=== PATIENT | female | born 1955 | race Caucasian/White ===

== ENCOUNTER 2016-12-24 19:37 | Emergency (ER) | payer MEDICAID ==
[~2016-12-24] VITALS: Ht 165.1 cm; Wt 82.6 kg
[2016-12-24 20:46] LABS: Basophils # (auto) 0.1 uL; Basophils % (auto) 0.7 % (0.0-2.0); Eosinophils # (auto) 0.3 uL; Eosinophils % (auto) 3.9 % (0.0-7.0); Hematocrit 41.1 % (36.0-46.0); Hemoglobin 13.5 g/dL (12.2-16.2); Lymphocytes # (auto) 3.4 uL; Lymphocytes % (auto) 41.5 % (10.0-50.0); Mean Corpuscular Hemoglobin 28.7 pg (28.0-32.0); Mean Corpuscular Hgb Conc. 32.8 g/dL (32.0-36.0); Mean Corpuscular Volume 87.4 fL (80.0-100.0); Mean Platelet Volume 7.4 fL (6.9-10.8); Monocytes # (auto) 0.8 uL; Monocytes % (auto) 9.6 % (0.0-12.0); Neutrophils # (auto) 3.6 uL; Neutrophils % (auto) 44.3 % (37.0-80.0); Nucleated Red Blood Cells % 0.1 %; Platelet Count (auto) 285 10^3/uL (140-450); Red Cell Distribution Width 14.5 % (11.8-14.3); White Blood Cell 8.2 10^3/uL (4.4-10.8)
[2016-12-24 21:00] LABS: Albumin 3.8 g/dL (3.4-5.0); BUN/Creatinine Ratio 18.5; Bilirubin, Total 0.3 mg/dL (0.2-1.0); Calcium 8.9 mg/dL (8.5-10.1); Potassium 4.3 mmol/L (3.5-5.1); Total Protein 7.6 g/dL (6.4-8.2)
[2016-12-25 05:27] VITALS: BP 108/71
== END 2016-12-25 05:43 | disposition home or self-care (01) ==
LOC: ER 19:42
DX: S86.912A Strain of unspecified muscle(s) and tendon(s) at lower leg level, left leg, initial encounter (principal); Z88.0 Allergy status to penicillin; X58.XXXA Exposure to other specified factors, initial encounter; Y93.89 Activity, other specified; Y92.89 Other specified places as the place of occurrence of the external cause; Y99.8 Other external cause status
CPT/HCPCS: 36415; 80053; 84550; 85025; 85379; 93971

== ENCOUNTER 2020-06-11 19:49 | Emergency (ER) | payer MEDICARE, BC ==
[~2020-06-11] VITALS: Ht 160 cm; Wt 81.6 kg
[2020-06-11 21:00] VITALS: BP 141/76
[2020-06-11] MEDS ORDERED: ACETAMINOPHEN 325 MG TAB PO ONE (23:30)
== END 2020-06-12 01:00 | disposition left against medical advice (07) ==
LOC: ER 19:50
DX: M25.572 Pain in left ankle and joints of left foot (principal); M79.89 Other specified soft tissue disorders; M77.32 Calcaneal spur, left foot
CPT/HCPCS: 73600; 73630; 93971

== ENCOUNTER → 2022-11-23 | Outpatient (CLI) | payer MEDICARE, BC | END | disposition home or self-care (01) | LOC: XYW 14:09 | PROVIDERS: ATTEND Student in an Organized Health Care Education/Training Program | DX: Z01.810 Encounter for preprocedural cardiovascular examination (principal); R07.89 Other chest pain | CPT/HCPCS: 93306 ==

== ENCOUNTER → 2023-01-05 | Outpatient (CLI) | payer MEDICARE, BC ==
[2023-01-05 11:36] LABS: Basophils # (auto) 0.1 10 ^3/uL (0-0.2); Basophils % (auto) 0.7 % (0.0-2.0); Eosinophils # (auto) 0.3 10 ^3/uL (0-0.8); Eosinophils % (auto) 3.6 % (0.0-7.0); Hematocrit 42.9 % (36.0-46.0); Hemoglobin 14.1 g/dL (12.2-16.2); Lymphocytes # (auto) 2.7 10 ^3/uL (0.4-5.4); Lymphocytes % (auto) 36.5 % (10.0-50.0); Mean Corpuscular Hemoglobin 28.2 pg (28.0-32.0); Mean Corpuscular Volume 85.5 fL (80.0-100.0); Monocytes # (auto) 0.7 10 ^3/uL (0-1.3); Monocytes % (auto) 9.7 % (0.0-12.0); Neutrophils # (auto) 3.7 10 ^3/uL (1.6-8.6); Neutrophils % (auto) 49.5 % (37.0-80.0); Nucleated Red Blood Cells % 0.2 %; Red Blood Cells 5.01 10^6/uL (4.0-5.20); Red Cell Distribution Width 14.2 % (11.8-14.3); White Blood Cell 7.5 10^3/uL (4.4-10.8)
[2023-01-05 11:39] LABS: Alanine Aminotransferase 29 U/L (7-40); Albumin 4.2 g/dL (3.2-4.8); Alkaline Phosphatase 82 U/L (46-116); Anion Gap 5 (5-15); Aspartate Aminotransferase 24 U/L (13-40); BUN/Creatinine Ratio 18.8 (10.0-20.0); Blood Urea Nitrogen 15 mg/dL (9-23); Calcium 9.2 mg/dL (8.5-10.1); Carbon Dioxide 32 mmol/L (20-30); Chloride 105 mmol/L (98-107); Cholesterol 187 mg/dL (< 200); Glucose 90 mg/dL (74-106); LDL Cholesterol 122 mg/dL (< 100); Potassium 3.9 mmol/L (3.5-5.1); Sodium 142 mmol/L (136-145); Triglycerides 101 mg/dL (< 150)
[2023-01-05 11:40] LABS: Bilirubin, Total 0.4 mg/dL (0.2-1.0); HDL Cholesterol 51 mg/dL (40-59); Total Protein 7.1 g/dL (5.7-8.2)
[2023-01-05 12:27] LABS: Free T4 (Free Thyroxine) 0.9 ng/dL (0.89-1.76)
== END | disposition home or self-care (01) ==
LOC: LAB 10:27
PROVIDERS: ATTEND Internal Medicine
DX: R07.89 Other chest pain (principal); R42 Dizziness and giddiness; E03.9 Hypothyroidism, unspecified; E78.5 Hyperlipidemia, unspecified
CPT/HCPCS: 36415; 80053; 80061; 84439; 84443; 84481; 85025

== ENCOUNTER 2023-04-20 11:32 | Inpatient (IN) | payer MEDICARE, BC ==
[2023-04-15 12:16] LABS: Basophils # (auto) 0 10 ^3/uL (0-0.2); Basophils % (auto) 0.7 % (0.0-2.0); Eosinophils # (auto) 0.1 10 ^3/uL (0-0.8); Eosinophils % (auto) 2.1 % (0.0-7.0); Hematocrit 43.2 % (36.0-46.0); Hemoglobin 14.4 g/dL (12.2-16.2); Lymphocytes # (auto) 2.5 10 ^3/uL (0.4-5.4); Lymphocytes % (auto) 34.1 % (10.0-50.0); Mean Corpuscular Hemoglobin 28.9 pg (28.0-32.0); Mean Corpuscular Hgb Conc. 33.4 g/dL (32.0-36.0); Mean Corpuscular Volume 86.5 fL (80.0-100.0); Monocytes # (auto) 0.7 10 ^3/uL (0-1.3); Monocytes % (auto) 9.3 % (0.0-12.0); Neutrophils # (auto) 3.9 10 ^3/uL (1.6-8.6); Neutrophils % (auto) 53.8 % (37.0-80.0); Red Cell Distribution Width 13.9 % (11.8-14.3); White Blood Cell 7.2 10^3/uL (4.4-10.8)
[2023-04-15 12:25] LABS: Urine Bacteria NONE SEEN /hpf (None Seen); Urine Blood Negative /uL (Negative); Urine Clarity Clear (Clear); Urine Color Yellow (Yellow); Urine Protein, UAD Negative (Negative); Urine Urobilinogen Normal (Negative); Urine WBC 1 /hpf (0 - 5); Urine pH 6.5 (5.0-8.0)
[2023-04-15 12:33] LABS: INR 0.96 (0.9-1.15); Partial Thromboplastin Time 30.1 SEC (24.5-34.5); Prothrombin Time 10.1 sec (9.3-11.8)
[2023-04-15 12:37] LABS: Alanine Aminotransferase 22 U/L (7-40); Albumin 4.2 g/dL (3.2-4.8); Alkaline Phosphatase 78 U/L (46-116); Anion Gap 5 (5-15); Aspartate Aminotransferase 25 U/L (13-40); Blood Urea Nitrogen 16 mg/dL (9-23); Calcium 9.8 mg/dL (8.5-10.1); Carbon Dioxide 31 mmol/L (20-30); Chloride 106 mmol/L (98-107); Glucose 89 mg/dL (74-106); Potassium 4.3 mmol/L (3.5-5.1); Sodium 142 mmol/L (136-145)
[2023-04-15 12:38] LABS: Bilirubin, Total 0.5 mg/dL (0.2-1.0)
[~2023-04-20] VITALS: Ht 165.1 cm; Wt 82.8 kg
[2023-04-20] VITALS (7 sets, daily range): BP systolic 113–135; BP diastolic 61–71; PULSE 63–97; RESP 15–24; TEMP 97.5–97.6; O2SAT 92–97
[~2023-04-20 11:32] MED LIST: DONE10TA9 PO; ESCI10TA PO; TRAZ-228 PO; ZIPR40CA8 PO
[2023-04-20] MEDS ORDERED: GLYCOPYRROLATE 0.2 MG/ML 1ML VIAL ONE (12:51)
[2023-04-20] MEDS ORDERED: ONDANSETRON HCL 4 MG/2 ML VIAL ONE (12:51)
[2023-04-20] MEDS ORDERED: KETOROLAC TROMETH 30 MG/ML 1ML VIAL ONE (12:51)
[2023-04-20] MEDS ORDERED: SUGAMMADEX 200mg/2ml Vial (100MG/ML) IV ONE ×2 (12:51→16:34)
[2023-04-20] MEDS ORDERED: PROPOFOL 10 MG/ML 20 ML IV ONE (12:51)
[2023-04-20] MEDS ORDERED: DexAMETHasone SOD PHOS 10MG/1ML VIAL INJ ONE (12:51)
[2023-04-20] MEDS ORDERED: fentaNYL CITRATE 100 MCG/2 ML VL ONE (12:51)
[2023-04-20] MEDS ORDERED: ROCURONIUM 10MG/ML 10ML VIAL IV ONE (12:51)
[2023-04-20] MEDS ORDERED: LIDOCAINE 2% (LOCAL ANESTH.) PF 5ml SDV ONE (12:51)
[2023-04-20] MEDS ORDERED: KETAMINE 50mg/ML 1ml syringe ONE (12:51)
[2023-04-20] MEDS: GABAPENTIN 400 MG CAP PO ONE (14:35)
[2023-04-20] MEDS: CELECOXIB 100 MG CAP PO ONE (14:35)
[2023-04-20] MEDS ORDERED: MIDAZOLAM HCL 2MG/2ML 2ml VIAL (1mg/ml) ONE (15:11)
[2023-04-20] MEDS: ACETAMINOPHEN IV 1000 MG/100ML (10MG/ML) IV ONE (15:15)
[2023-04-20] MEDS ORDERED: HYDROmorphone HCL 2 MG/ML VL/or syr ONE (16:04)
[2023-04-20] MEDS ORDERED: ONDANSETRON HCL 4 MG/2 ML VIAL IV PRN ×2 (16:15→17:00)
[2023-04-20] MEDS ORDERED: HYDROmorphone HCL 2 MG/ML VL/or syr IV PRN ×2 (16:15→17:00)
[2023-04-20] MEDS ORDERED: NALOXONE HCL 0.4 MG/ML VIAL ONE (16:27)
[2023-04-20] MEDS ORDERED: ALBUTEROL SULF 2.5 MG/0.5ML(0.5%) NEB SOLN NEB PRN (18:15)
[2023-04-20] MEDS: DONEPEZIL HYDROCHLORIDE 5 MG TAB PO SCH (21:00)
[2023-04-20] MEDS: DOCUSATE SOD 100 MG CAP PO PRN (21:00)
[2023-04-20] MEDS: ZIPRASIDONE HYDROCHLORIDE 40 MG PO SCH (22:00)
[2023-04-21] VITALS (8 sets, daily range): BP systolic 96–126; BP diastolic 16–51; PULSE 59–75; RESP 17–19; TEMP 98.1–98.9; O2SAT 89–97
[2023-04-21] MEDS: HYDROmorphone HCL 2 MG/ML VL/or syr IV PRN (03:25)
[2023-04-21] MEDS: ONDANSETRON HCL 4 MG/2 ML VIAL IV PRN (03:30)
[2023-04-21] MEDS: SODIUM CHLOR 0.9% PF (SALINE LOCK) 10ML VIAL/SYR IV SCH (03:57)
[2023-04-21] MEDS: D5W/SOD CHL 0.45%/KCL 20MEQ 1,000 ML IV ONE (07:18)
[2023-04-21] MEDS: levoFLOXacin 500MG 100 ML IV SCH (09:35)
[2023-04-21] MEDS: PANTOPRAZOLE 40 MG/10 ML VIAL INJ IV SCH (09:36)
[2023-04-21] MEDS: CITALOPRAM HYDROBR 20 MG TAB PO SCH (09:36)
[2023-04-21 09:48] LABS: Basophils # (auto) 0 10 ^3/uL (0-0.2); Eosinophils # (auto) 0 10 ^3/uL (0-0.8); Hematocrit 39.7 % (36.0-46.0); Hemoglobin 12.9 g/dL (12.2-16.2); Lymphocytes # (auto) 1.9 10 ^3/uL (0.4-5.4); Lymphocytes % (auto) 14.3 % (10.0-50.0); Mean Corpuscular Hemoglobin 28.1 pg (28.0-32.0); Mean Corpuscular Hgb Conc. 32.6 g/dL (32.0-36.0); Mean Corpuscular Volume 86.3 fL (80.0-100.0); Monocytes % (auto) 7.9 % (0.0-12.0); Neutrophils # (auto) 10.2 10 ^3/uL (1.6-8.6); Neutrophils % (auto) 77.8 % (37.0-80.0); Nucleated Red Blood Cells % 0.1 %; Red Cell Distribution Width 14.1 % (11.8-14.3); White Blood Cell 13.1 10^3/uL (4.4-10.8)
[2023-04-21 09:56] LABS: Alanine Aminotransferase 16 U/L (7-40); Albumin 3.7 g/dL (3.2-4.8); Alkaline Phosphatase 61 U/L (46-116); Anion Gap 6 (5-15); Aspartate Aminotransferase 21 U/L (13-40); BUN/Creatinine Ratio 21.2 (10.0-20.0); Blood Urea Nitrogen 14 mg/dL (9-23); Calcium 9.4 mg/dL (8.5-10.1); Carbon Dioxide 27 mmol/L (20-30); Chloride 105 mmol/L (98-107); Glucose 89 mg/dL (74-106); LDL Cholesterol 110 mg/dL (< 100); Potassium 4.7 mmol/L (3.5-5.1); Sodium 138 mmol/L (136-145); Triglycerides 132 mg/dL (< 150)
[2023-04-21 09:57] LABS: Bilirubin, Total 0.6 mg/dL (0.2-1.0); Cholesterol 179 mg/dL (< 200); HDL Cholesterol 46 mg/dL (40-59); Total Protein 6.3 g/dL (5.7-8.2)
[2023-04-21 10:05] LABS: CRP High Sensitivity 1.28 mg/dL (<1.0)
[2023-04-21 10:21] LABS: INR 1.04 (0.9-1.15); Partial Thromboplastin Time 29.6 SEC (24.5-34.5); Prothrombin Time 10.9 sec (9.3-11.8)
[2023-04-21 10:40] LABS: Lipase 31 U/L (12-53); Magnesium 1.8 mg/dL (1.6-2.6)
[2023-04-21 11:20] LABS: Amphetamine Screen, Urine Neg (NEGATIVE)
[2023-04-21 11:22] LABS: Barbiturate Scree,Urine Neg (NEGATIVE); Urine Bacteria NONE SEEN /hpf (None Seen); Urine Blood Negative /uL (Negative); Urine Clarity Clear (Clear); Urine Color Yellow (Yellow); Urine Mucus FEW (None Seen); Urine Protein, UAD Negative (Negative); Urine Specific Gravity 1.023 (1.001-1.035); Urine Urobilinogen Normal (Negative); Urine WBC 3 /hpf (0 - 5)
[2023-04-21 11:23] LABS: Benzodiazephine Screen, Urine Pos (NEGATIVE); Cannabinoid Screen, Urine Neg (NEGATIVE); Cocaine Screen, Urine Neg (NEGATIVE); Opiate Scree,Urine Neg (NEGATIVE); Phencyclidine Screen, Urine Neg (NEGATIVE)
[2023-04-21] MEDS: HYDROcodone-ACET 5/325MG TAB PO PRN (11:59)
[2023-04-21] MEDS: LIDOCAINE W/ EPINEPHRINE 2% INJ 20ML VIAL ONE (18:35)
[2023-04-21] MEDS: BUPIVACAINE HCL 0.25% P/F 10 ML VIAL ONE (18:35)
[2023-04-21] MEDS: LIDOCAINE 2% JELLY 11ml (GLYDO) ONE (18:35)
[2023-04-21] MEDS: levoFLOXacin 500MG 100 ML IV ONE (18:36)
[2023-04-21] MEDS: FAMOTIDINE (10MG/ML) 2ML VL IV ONE (18:36)
[2023-04-21] MEDS: ZIPRASIDONE HYDROCHLORIDE 40 MG PO SCH (20:59)
[2023-04-22 05:07] VITALS: BP 107/61; PULSE 72; RESP 18; TEMP 98.7; O2SAT 90
[2023-04-22 07:02] LABS: Alanine Aminotransferase 16 U/L (7-40); Albumin 3.7 g/dL (3.2-4.8); Alkaline Phosphatase 58 U/L (46-116); Anion Gap 5 (5-15); Aspartate Aminotransferase 19 U/L (13-40); BUN/Creatinine Ratio 16.4 (10.0-20.0); Blood Urea Nitrogen 11 mg/dL (9-23); Calcium 8.6 mg/dL (8.7-10.4); Carbon Dioxide 30 mmol/L (20-30); Chloride 105 mmol/L (98-107); Glucose 82 mg/dL (74-106); Sodium 140 mmol/L (136-145)
[2023-04-22 07:03] LABS: Bilirubin, Total 0.6 mg/dL (0.2-1.0); Total Protein 6.2 g/dL (5.7-8.2)
[2023-04-22 07:14] LABS: Basophils # (auto) 0 10 ^3/uL (0-0.2); Basophils % (auto) 0.2 % (0.0-2.0); Eosinophils # (auto) 0 10 ^3/uL (0-0.8); Eosinophils % (auto) 0.2 % (0.0-7.0); Hematocrit 39.1 % (36.0-46.0); Hemoglobin 12.7 g/dL (12.2-16.2); Lymphocytes # (auto) 2.3 10 ^3/uL (0.4-5.4); Lymphocytes % (auto) 20.8 % (10.0-50.0); Mean Corpuscular Hemoglobin 28.1 pg (28.0-32.0); Mean Corpuscular Hgb Conc. 32.5 g/dL (32.0-36.0); Mean Corpuscular Volume 86.5 fL (80.0-100.0); Monocytes % (auto) 9.2 % (0.0-12.0); Neutrophils # (auto) 7.7 10 ^3/uL (1.6-8.6); Neutrophils % (auto) 69.6 % (37.0-80.0); Red Blood Cells 4.52 10^6/uL (4.0-5.20); Red Cell Distribution Width 14.3 % (11.8-14.3)
[2023-04-22 07:30] VITALS: O2SAT 97
[2023-04-22 07:35] VITALS: O2SAT 91
[2023-04-22] MEDS: ACETAMINOPHEN 325 MG TAB PO PRN (08:17)
[2023-04-22 09:00] VITALS: BP 117/68; PULSE 62; RESP 18; TEMP 99.1; O2SAT 90
[2023-04-22] MEDS ORDERED: IPRATROPIUM BROM 0.5 MG/2.5ML INH SOL NEB SCH (12:00)
[2023-04-22 12:18] VITALS: TEMP 37.3
[2023-04-22 12:50] VITALS: BP 107/64; PULSE 68; RESP 20; TEMP 98.7; O2SAT 92
== END 2023-04-22 13:15 | disposition home health service (06) | DRG 353 ==
LOC: SUR 11:32 → OVERFLOW 18:10 → EAST 18:53
PROVIDERS: ADMIT Internal Medicine; ATTEND Surgery
PROC: 0WQF0ZZ Repair Abdominal Wall, Open Approach (ICD-10-PCS; principal; 2023-04-20 15:35)
DX: K43.2 Incisional hernia without obstruction or gangrene (principal); J96.01 Acute respiratory failure with hypoxia; F32.A Depression, unspecified; E03.9 Hypothyroidism, unspecified; Z86.711 Personal history of pulmonary embolism; Z88.0 Allergy status to penicillin; Z79.899 Other long term (current) drug therapy
CPT/HCPCS: 36415; 71045; 80053; 80061; 80307; 81001; 82140; 82306; 82607; 83036; 83690; 83735; 84443; 85025; 85610; 85730; 86141; 86850; 86900; 86901; 97110; 97116; 97163; C1781; C9113; G0378; J0131; J1100; J1885; J1956; J2001; J2250; J2405; J2704; J3490

== ENCOUNTER 2023-11-24 14:07 | Emergency (ER) | payer MEDICARE, BC ==
[~2023-11-24] VITALS: Ht 165.1 cm; Wt 72.7 kg
[2023-11-24 15:17] VITALS: BP 130/75; PULSE 83; RESP 18; TEMP 98; O2SAT 95
[2023-11-24] MEDS ORDERED: LEVO500T91 PO (15:33)
[2023-11-24] MEDS ORDERED: METH4PAK PO (15:33)
[2023-11-24] MEDS ORDERED: BENZ200C64 PO (15:33)
== END 2023-11-24 15:46 | disposition home or self-care (01) ==
LOC: ER 14:07
DX: J20.9 Acute bronchitis, unspecified (principal); J01.00 Acute maxillary sinusitis, unspecified
CPT/HCPCS: 71046

== ENCOUNTER → 2024-01-27 | Day surgery (SDC) | payer MEDICARE, BC ==
[2024-01-23 12:50] LABS: Urine Bacteria None Seen /hpf (None Seen)
[2024-01-23 13:25] LABS: Urine Amorphous Crystal MANY /hpf (None Seen); Urine Blood Negative /uL (Negative); Urine Clarity Cloudy (Clear); Urine Protein, UAD Negative (Negative); Urine Specific Gravity 1.017 (1.001-1.035); Urine Urobilinogen Normal (Negative); Urine WBC 1 /hpf (0 - 5); Urine pH 7.5 (5.0-9.0)
[2024-01-23 13:26] LABS: Basophils # (auto) 0.1 10 ^3/uL (0-0.2); Basophils % (auto) 0.8 % (0.0-2.0); Eosinophils # (auto) 0.2 10 ^3/uL (0-0.8); Eosinophils % (auto) 2.5 % (0.0-7.0); Hematocrit 41.2 % (36.0-46.0); Lymphocytes # (auto) 2.3 10 ^3/uL (0.4-5.4); Lymphocytes % (auto) 31.6 % (10.0-50.0); Mean Corpuscular Hemoglobin 29.9 pg (28.0-32.0); Mean Corpuscular Volume 88.1 fL (80.0-100.0); Monocytes # (auto) 0.6 10 ^3/uL (0-1.3); Neutrophils # (auto) 4.2 10 ^3/uL (1.6-8.6); Neutrophils % (auto) 57.1 % (37.0-80.0); Platelet Count (auto) 211 10^3/uL (140-450); Red Blood Cells 4.68 10^6/uL (4.0-5.20); Red Cell Distribution Width 14.2 % (11.8-14.3); Urine Color Yellow (Yellow); White Blood Cell 7.3 10^3/uL (4.4-10.8)
[2024-01-23 13:39] LABS: INR 0.95 (0.9-1.15); Partial Thromboplastin Time 27.6 SEC (24.5-34.5); Prothrombin Time 10.1 sec (9.3-11.8)
[2024-01-23 14:22] LABS: Alanine Aminotransferase 17 U/L (7-40); Albumin 3.9 g/dL (3.2-4.8); Alkaline Phosphatase 83 U/L (46-116); Anion Gap 2 (5-15); Aspartate Aminotransferase 16 U/L (13-40); BUN/Creatinine Ratio 25.4 (10.0-20.0); Blood Urea Nitrogen 18 mg/dL (9-23); Calcium 9.6 mg/dL (8.7-10.4); Carbon Dioxide 34 mmol/L (20-31); Chloride 107 mmol/L (98-107); Glucose 90 mg/dL (74-106); Potassium 4.2 mmol/L (3.5-5.1); Sodium 143 mmol/L (136-145)
[2024-01-23 14:23] LABS: Bilirubin, Total 0.3 mg/dL (0.2-1.0); Total Protein 6.6 g/dL (5.7-8.2)
[~2024-01-27] VITALS: Ht 165.1 cm; Wt 74.8 kg
[~2024-01-27] MED LIST changes: +BENZ200C64 PO; +DexAMETHasone SOD PHOS 10MG/1ML VIAL INJ ONE; +LEVO500T91 PO; +MEPERIDINE HCL (25 MG/ML) 1ML VIAL ONE; +METH4PAK PO; +MIDAZOLAM HCL 2MG/2ML 2ml VIAL (1mg/ml) ONE; +fentaNYL CITRATE 100 MCG/2 ML VL ONE
[2024-01-27 14:38] VITALS: PULSE 46; RESP 10; TEMP 98.4; O2SAT 96
[2024-01-27 15:55] VITALS: BP 112/71; PULSE 61; RESP 12; O2SAT 95
--- NOTE | 2024-01-27 16:40 | DVHOP2 ---
Operative Report DATE OF OPERATION: 01/27/24 PROCEDURE: Colonoscopy with cold snare polypectomy. PREOPERATIVE INDICATION: The patient is a 68 -year-old female undergoing colonoscopy for colon cancer screening with change in bowel habits and personal history of colon polyps POSTOPERATIVE DIAGNOSES: 1. Moderate diverticular disease most prominent in the sigmoid 2. 3 mm benign-appearing transverse colon polyp was seen and removed by cold snare polypectomy and the specimens were retrieved 3. There were a 4 mm benign-appearing sigmoid polyp that were seen and removed by cold snare polypectomy 4. There were two or three small benign-appearing rectal polyps that appeared hyperplastic and were removed by cold biopsy forceps 5. Trace to 1+ internal hemorrhoids otherwise normal examination up to the cecum PROCEDURE PERFORMED BY: Braulio Walter M.D. SCOPE: Olympus videocolonoscope. ASA CLASS: 2. PREOPERATIVE MEDICATIONS: Dr. Frank Rossi PROCEDURE IN DETAIL: After obtaining an informed consent, the patient was placed on left lateral decubitus position. She was then sedated with the above medications. A rectal examination was performed that was normal. The colonoscope was then passed through the anus into the rectosigmoid and through the descending, transverse, and ascending colon up to the cecum with visualization of the appendiceal orifice, base of the cecum and the ileocecal valve. The colonoscope was then withdrawn. No masses or colitis was noted. Patient had moderate scattered diverticular disease most prominent in the si gmoid with sigmoid muscular hypertrophy There was a 3 mm benign-appearing transverse colon polyp that was seen and removed by cold snare polypectomy There was another 3-4 mm benign-appearing sigmoid polyp that was seen and removed by cold snare polypectomy There were 2-3 benign-appearing rectal polyps were seen and removed by cold biopsy forceps. On retroflexion and straight on view the patient had trace to 1+ internal hemorrhoids. The patient tolerated the procedure well without difficulty. WITHDRAWAL TIME: 9 minutes QUALITY OF THE PREP: [place] Bowel Prep score: 9. COMPLICATIONS : None SPECIMENS: Transverse colon polyp Sigmoid polyp Rectal polyps DISPOSITION: Stable D/C to home PLAN: 1. Repeat colonoscopy base on biopsy result likely in five years 2. Resume GI soft diet advance as tolerated 3. Increase fluid and fiber intake 4. Local anorectal hemorrhoidal care 5. Outpatient follow up with me in 4-6 weeks to review results and discuss further management BRAULIO WALTER MD Jan 27, 2024 16:40
== END | disposition home or self-care (01) ==
LOC: GI 11:13
PROVIDERS: ATTEND Internal Medicine Gastroenterology
DX: R19.5 Other fecal abnormalities (principal); R15.9 Full incontinence of feces; D12.5 Benign neoplasm of sigmoid colon; K57.30 Diverticulosis of large intestine without perforation or abscess without bleeding; K64.8 Other hemorrhoids; I10 Essential (primary) hypertension; E03.9 Hypothyroidism, unspecified; F31.9 Bipolar disorder, unspecified; J45.909 Unspecified asthma, uncomplicated; Z90.710 Acquired absence of both cervix and uterus; Z90.89 Acquired absence of other organs; Z88.0 Allergy status to penicillin; Z79.82 Long term (current) use of aspirin; Z79.899 Other long term (current) drug therapy
CPT/HCPCS: 36415; 45380; 45385; 80053; 81001; 85025; 85610; 85730; 88305; J1100; J2175; J2250; J3010; J7030

== ENCOUNTER → 2024-05-14 | Outpatient (CLI) | payer MEDICARE, BC ==
[~2024-05-14] MED LIST changes: -DexAMETHasone SOD PHOS 10MG/1ML VIAL INJ ONE; -MEPERIDINE HCL (25 MG/ML) 1ML VIAL ONE; -MIDAZOLAM HCL 2MG/2ML 2ml VIAL (1mg/ml) ONE; -fentaNYL CITRATE 100 MCG/2 ML VL ONE
[2024-05-14 16:36] LABS: Urine Amorphous Crystal FEW /hpf (None Seen); Urine Bacteria FEW /hpf (None Seen); Urine Blood Negative /uL (Negative); Urine Budding Yeast MANY /hpf (None Seen); Urine Clarity Turbid (Clear); Urine Color Light-Yellow (Yellow); Urine Mucus FEW (None Seen); Urine Protein, UAD Negative (Negative); Urine Specific Gravity 1.018 (1.001-1.035); Urine Squamous Epithelial Cell None Seen /hpf (<5); Urine Urobilinogen Normal (Negative)
== END | disposition home or self-care (01) ==
LOC: LAB 15:25
PROVIDERS: ATTEND Urology
DX: R32 Unspecified urinary incontinence (principal)
CPT/HCPCS: 81001; 87086

== ENCOUNTER → 2024-09-19 | Outpatient (CLI) | payer MEDICARE, BC ==
[2024-09-19 15:50] LABS: Hematocrit 44.5 % (36.0-46.0); Hemoglobin 14.8 g/dL (12.2-16.2); Mean Corpuscular Hemoglobin 28.7 pg (28.0-32.0); Mean Corpuscular Volume 86.4 fL (80.0-100.0); Nucleated Red Blood Cells % 0.0 %
[2024-09-19 16:06] LABS: Urine Protein, UAD TRACE (Negative)
[2024-09-19 16:11] LABS: Alanine Aminotransferase 18 U/L (7-40); Albumin 4.2 g/dL (3.2-4.8); Alkaline Phosphatase 89 U/L (46-116); Anion Gap 7 (5-15); BUN/Creatinine Ratio 19.5 (10.0-20.0); Blood Urea Nitrogen 16 mg/dL (9-23); Calcium 9.7 mg/dL (8.7-10.4); Carbon Dioxide 31 mmol/L (20-31); Chloride 106 mmol/L (98-107); Cholesterol 178 mg/dL (< 200); Glucose 84 mg/dL (74-106); HDL Cholesterol 43 mg/dL (40-59); Potassium 4.4 mmol/L (3.5-5.1); Sodium 144 mmol/L (136-145); Total Protein 6.9 g/dL (5.7-8.2)
[2024-09-19 16:12] LABS: Bilirubin, Total 0.5 mg/dL (0.2-1.0)
[2024-09-19 16:16] LABS: Triglycerides 206 mg/dL (< 150)
== END | disposition home or self-care (01) ==
LOC: LAB 15:25
PROVIDERS: ATTEND Internal Medicine
DX: N18.2 Chronic kidney disease, stage 2 (mild) (principal); R73.01 Impaired fasting glucose; R32 Unspecified urinary incontinence; Z13.1 Encounter for screening for diabetes mellitus; Z00.01 Encounter for general adult medical examination with abnormal findings; Z79.899 Other long term (current) drug therapy
CPT/HCPCS: 36415; 80053; 80061; 81001; 83036; 84439; 84443; 85025

== ENCOUNTER 2024-11-23 15:33 | Emergency (ER) | payer MEDICARE, BC ==
[~2024-11-23] VITALS: Ht 165.1 cm; Wt 77.2 kg
--- NOTE | 2024-11-23 16:44 | ED.PDOC ---
Musculoskeletal HPI Comments A 69 YEAR OLD FEMALE PRESENTS TO THE ED WITH COMPLAINT OF RIGHT SIDED HIP PAIN RADIATING TO HER RIGHT LEG THAT STARTED 3 WEEKS AGO. PATIENT REPORTS SHE WENT TO SEE HER PCP ON 11/14/24 FOR COMPLAINT, HAD OUTPATIENT X RAYS DONE BUT NEVER RECEIVED HER RESULTS. PATIENT DENIES ANY RECENT FALLS, INJURIES OR PRIOR SURGERY. PATIENT HAS BEEN USING ADVIL BUT HAS NO PAIN RELIEF. PATIENT DENIES FEVER, CHILLS, SHORTNESS OF BREATH, CHEST PAIN, ABDOMINAL PAIN, NAUSEA, VOMITING, HEADACHE, OR OTHER COMPLAINTS. NO OTHER SYMPTOMS OR MODIFYING FACTORS AT THIS TIME. PATIENT IS ALERT, ORIENTED X 4, AND HAS STEADY GAIT. Chief Complaint: Lower Extremity Time Seen by MD: 16:15 Primary Care Provider: GENNARO Reviewed Notes: Nurses Notes, Medications, Allergies Allergies: Coded Allergies: Penicillins (Verified Allergy, Unknown, 01/23/24) Uncoded Allergies: PENICILLIN (Allergy, Unknown, 12/24/16) Home Meds Active Scripts Tramadol HCl (Tramadol HCl) 50 Mg Tab, 50 MG PO BID, #20 TAB Prov:LOLA GOODRICH 11/23/24 Benzonatate (Benzonatate) 200 Mg Cap, 1 CAP PO TID, #30 CAP Prov:LOLA GOODRICH 11/24/23 Methylprednisolone (Medrol Dosepak) 4 Mg Blaine, 4 MG PO UD, #21 TAB UAD Prov:LOLA GOODRICH 11/24/23 Levofloxacin Hemihydrate (LEVAQUIN 500 MG) 500 Mg Tab, 1 TAB PO DAILY, #10 TAB Prov:LOLA GOODRICH 11/24/23 Reported Medications Donepezil Hydrochloride (Aricept) 10 Mg Tab, 10 MG PO HS, TAB 04/15/23 Escitalopram Oxalate (Lexapro) 10 Mg Tab, 10 MG PO DAILY, TAB 04/15/23 Ziprasidone Hydrochloride (Geodon) 40 Mg Cap, 40 MG PO BID, CAP 04/15/23 Trazodone Hcl (Trazodone Hcl) 100 Mg Tab, 2 TAB PO HS, TAB 04/15/23 Information Source: Patient Mode of Arrival: Ambulatory Location: Right Extremity Location: Back, Hip, Leg Timing: Weeks (3) Severity: Moderate Able to Move Extremity: Yes Bear Weight: Fully Pain: Moderate Mechanism: None Circumstances: Spontaneous Onset of Symptoms: Spontaneous Symptoms: Pain DVT Risk Factors: NONE Associated signs and symptoms: Back pain, Leg pain Past Medical History PAST MEDICAL HISTORY: Depression, PE, Thyroid Surgical History: Denies all surgeries [employer]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 Family History Family History: No family hx of DM, No family hx of Heart isabela, No family hx of HTN Social History Smoker: Non-Smoker Alcohol: Denies ETOH Use Drugs: Denies Drug Use Lives In: Home Constitutional: denies: chills, diaphoresis, fatigue, fever, malaise, sweats, weakness, others EENTM: denies: blurred vision, double vision, ear bleeding, ear discharge, ear drainage, ear pain, ear ringing, eye pain, eye redness, hearing loss, mouth pain, mouth swelling, nasal discharge, nose bleeding, nose congestion, nose pain, photophobia, tearing, throat pain, throat swelling, voice changes, others Respiratory: denies: cough, hemoptysis, orthopnea, SOB at rest, shortness of breath, SOB with excertion, stridor, wheezing, others Cardiovascular: denies: chest pain, dizzy spells, diaphoresis, Dyspnea on exertion, edema, irregular heart beat, left arm pain, lightheadedness, palpitations, PND, syncope, others Gastrointestinal: denies: abdomen distended, abdominal pain, blood streaked bowels, constipated, diarrhea, dysphagia, difficulty swallowing, hematemesis, melena, nausea, poor appetite, poor fluid intake, rectal bleeding, rectal pain, vomiting, others Genitourinary: denies: abnormal vagina bleeding, burning, dyspareunia, dysuria, flank pain, frequency, hematuria, incontinence, pain, , vagina discharge, urgency, others Neurological: denies: dizziness, fainting, headache, left sided numbness, left sided weakness, numbness, paresthesia, pre-existing deficit, right sided numbness, right sided weakness, seizure, speech problems, tingling, tremors, weakness, others Musculoskeletal: reports: back pain, muscle pain; denies: gout, joint pain, joint swelling, muscle stiffness, neck pain, others Integumetry: denies: bruises, change in color, change in hair/nails, dryness, laceration, lesions, lumps, rash, wounds, others Allergic/Immunocompromised: denies: Difficulty Healing, Frequent Infections, Hives, Itching, others Hematologic/Lymphatic: denies: anemia, blood clots, easy bleeding, easy bruising, swollen glands, others Endocrine: denies: excessive hunger, excessive sweating, excessive thirst, excessive urination, flushing, intolerance to cold, intolerance to heat, unexplained weight gain, unexplained weight loss, others Psychiatric: denies: anxiety, bipolar disorder, depression, hopeless, panic disorder, schizophrenia, sleepless, suicidal, others All Other Systems: Reviewed and Negative Physical Exam General Appearance: No Apparent Distress, Normal HEENT: Normal ENT Inspection, PERRL/EOMI, Pharynx Normal, TMs Normal Neck: Full Range of Motion, Non-Tender, Normal, Normal Inspection Respiratory: Chest Non-Tender, Lungs Clear, No Accessory Muscle Use, No Respiratory Distress, Normal Breath Sounds Cardiovascular: No Edema, No JVD, No Murmur, No Gallop, Normal Peripheral Pulses, Regular Rate/Rhythm Breast Exam: Deferred Gastrointestinal: No Organomegaly, Non Tender, No Pulsatile Mass, Normal Bowel Sounds, Soft Genitalia: Deferred Pelvic: Deferred Rectal: Deferred Extremities: No calf tenderness, Normal capillary refill, Normal inspection, Normal range of motion, No pedal edema, Tender (right lateral hip, no bony tenderness, swelling and deformity. ) Musculoskeletal : Location: Bilateral Extremity Location: Back Apperance: Tenderness (AND MUSCLE SPASM ON LOW BACK, NO BONY TENDERNESS AND DEFORMITY. ) Neurologic: Alert, orchid grower II-XII nml as Tested, No Motor Deficits, Normal Affect, Normal Mood, No Sensory Deficits Cerebellar Function: Normal Reflexes: Normal Skin: Dry, Normal Color, Warm Peripheral Pulses: 2+ carotid (R), 2+ carotid (L), 2+ dorsalis pedis (R), 2+ dorsalis pedis (L) Lymphatic: No Adenopathy Was a procedure done? Was a procedure done?: No Differential Diagnosis EXT Differential Diagnosis: Fracture, Sprain, DJD, Contusion, Strain, Rheumatoid, Arthritis, Bursitis X-Ray, Labs, Meds, VS Vital Signs Date Time Temp Pulse Resp B/P (MAP) Pulse Ox O2 Delivery O2 Flow Rate FiO2 11/23/24 15:34 97.9 70 18 112/[address] [address] Ph: [phone] DIAGNOSTIC IMAGING Diagnostic Imaging Report : [id number] Signed PATIENT: KATTY ORR ACCT: [id number] UNIT: [id number] : 1955 LOC: ER ROOM / BED: / AGE / SEX: 69 / F ADM STATUS: REG ER SERVICE 17 ORDERING PHYSICIAN: LOLA GOODRICH PROCEDURE(s): RHIP - R HIP COMPLETE XRAY REASON: PAIN, NO INJURY ORDER NUMBER(s): [id number], ACCESSION NUMBER(s): [id number] XY R HIP COMPLETE XRAY, INDICATION: PAIN, NO INJURY TECHNICAL DATA: Frontal and frog lateral views were obtained of the right hip. COMPARISON: XY L HIP 1V XRAY on DOS: 11/14/24, XY R HIP COMPLETE XRAY on DOS: 11/14/24 FINDINGS: The right hip is normally located. The right hip joint is normally maintained with no marginal osteophytes. No right hip fracture is identified. The right sacroiliac joint appears normal. IMPRESSION: No acute fracture radiographs of the right hip. ATED BY: EDGAR CABALLERO MD DICTATED DATE/TIME: 11/23/241652 SIGNED BY: EDGAR CABALLERO MD SIGNED DATE/TIME: 11/23/241652 CC: [place] [id number] Ph: [phone] DIAGNOSTIC IMAGING Diagnostic Imaging Report : [id number] Signed PATIENT: KATTY ORR ACCT: [id number] UNIT: [id number] : 1955 LOC: ER ROOM / BED: / AGE / SEX: 69 / F ADM STATUS: REG ER SERVICE ORDERING PHYSICIAN: LOLA GOODRICH PROCEDURE(s): LUMB2 - LUMBAR SPINE 3 VIEW REASON: PAIN, NO INJURY ORDER NUMBER(s): [id number], ACCESSION NUMBER(s): [id number] XY LUMBAR SPINE 3 VIEW, HISTORY: PAIN, NO INJURY COMPARISON: None TECHNICAL DATA: Frontal and lateral views were obtained of the lumbar spine. FINDINGS: There are 5 lumbar type vertebral bodies. Lumbar curvature is within normal limits. There is no spondylolisthesis. Age indeterminate mild compression deformity of L1. Disk heights are narrowed. The facet joints appear degenerative. The sacroiliac joints are symmetric. Paraspinal soft tissues are within normal limits. IMPRESSION: Age indeterminate mild compression deformity of L1. ATED BY: EDGAR CABALLERO MD DICTATED DATE/TIME: 11/23/241651 SIGNED BY: EDGAR CABALLERO MD SIGNED DATE/TIME: 11/23/241651 CC: X-Ray, Labs, Meds, VS Comment EXTERNAL MEDICAL RECORDS REVIEWED: [NONE] INDEPENDENT HISTORIANS: [NONE] SOCIAL DETERMINANTS OF HEALTH: [NONE] LABS ORDERED: NONE REVIEWED AND INTERPRETED RESULTS: NONE IMAGING ORDERED: XY OF THE LUMBAR AND RIGHT HIP TREATMENTS ORDERED: PT DECLINED. PROCEDURES PERFORMED: NONE CRITICAL CARE TIME: NONE I HAVE DISCUSSED THE PATIENT WITH THE ATTENDING PHYSICIAN, DR. S/HE AGREES WITH THE PATIENT'S PLAN OF CARE AND DISPOSITION. BASED ON HISTORY OF PRESENT ILLNESS, AND PHYSICAL EXAM, PATIENT WILL BE DISCHARGED HOME. DISCUSSED PLAN FOR DISCHARGE HOME WITH RX [ULTRAM 50MG*]. MEDICATION WARNINGS GIVEN. SHARED DECISION MAKING: DISCUSSED WITH PATIENT THAT THEIR WORKUP WAS NORMAL. PATIENT INSTRUCTED TO FOLLOW UP WITH PRIMARY CARE PROVIDER IN 1-2 DAYS FOR RE- EVALUATION OF SYMPTOMS. PATIENT VERBALIZES UNDERSTANDING TO RETURN TO ED FOR NEW OR WORSENING SYMPTOMS OR IF FOLLOW UP WITH PCP CANNOT BE OBTAINED. PATIENT FEELS COMFORTABLE GOING HOME AT THIS TIME. ALL QUESTIONS ADDRESSED AT TIME OF DISCHARGE. Time of 1ST Reevaluation: 17:27 Reevaluation 1ST: Improved Patient Education/Counseling: Diagnosis, Treatment, Need For Follow Up Family Education/Counseling: Diagnosis, Treatment, Need For Follow Up Medical Screening: No EMC Exist At This Time Departure 1 Departure Time of Disposition: 17:28 Impression: Primary Impression: DDD (degenerative disc disease) Qualified Codes: M51.372 - Other intervertebral disc degeneration, lumbosacral region with discogenic back pain and lower extremity pain Additional Impression: Lumbar radiculopathy Disposition: 01 HOME / SELF CARE / HOMELESS Condition: Stable Additional Instructions: F/U PCP IN 2 DAYS RECHECK. IF CONDITION BECOME WORSE, RETURN TO ED ANNA. e-Prescriptions Tramadol HCl (Tramadol HCl) 50 Mg Tab 50 MG PO BID, #20 TAB Prov: LOLA GOODRICH 11/23/24 Discharged With: Self, Relative Critical Care Note Critical Care Time?: No Stability Stability form required: No I personally scribed for LOLA GOODRICH ([email or web address]) on 11/23/24 at 16:44. Electronically submitted by Domitila Munguia ([facility]). I personally scribed for LOLA GOODRICH ([email or web address]) on 11/23/24 at 17:09. Electronically submitted by Domitila Munguia ([facility]). LOLA GOODRICH Nov 23, 2024 16:44
--- NOTE | 2024-11-23 16:54 | DVH ---
XY LUMBAR SPINE 3 VIEW, HISTORY: PAIN, NO INJURY COMPARISON: None TECHNICAL DATA: Frontal and lateral views were obtained of the lumbar spine. FINDINGS: There are 5 lumbar type vertebral bodies. Lumbar curvature is within normal limits. There is no spond ylolisthesis. Age indeterminate mild compression deformity of L1. Disk heights are narrowed. The fac et joints appear degenerative. The sacroiliac joints are symmetric. Paraspinal soft tissues are withi n normal limits. IMPRESSION: Age indeterminate mild compression deformity of L1.
--- NOTE | 2024-11-23 16:55 | DVH ---
XY R HIP COMPLETE XRAY, INDICATION: PAIN, NO INJURY TECHNICAL DATA: Frontal and frog lateral views were obtained of the right hip. COMPARISON: XY L HIP 1V XRAY on DOS: 11/14/24, XY R HIP COMPLETE XRAY on DOS: 11/14/24 FINDINGS: The right hip is normally located. The right hip joint is normally maintained with no marginal osteop hytes. No right hip fracture is identified. The right sacroiliac joint appears normal. IMPRESSION: No acute fracture radiographs of the right hip.
[2024-11-23] MEDS ORDERED: TRAM-626 PO (17:21)
[2024-11-23 17:27] VITALS: BP 112/58; PULSE 70; RESP 18; TEMP 97.9; O2SAT 94
== END 2024-11-23 17:28 | disposition home or self-care (01) ==
LOC: ER 15:40
DX: M51.372 Other intervertebral disc degeneration, lumbosacral region with discogenic back pain and lower extremity pain (principal); M51.17 Intervertebral disc disorders with radiculopathy, lumbosacral region; F32.A Depression, unspecified; E03.9 Hypothyroidism, unspecified; Z79.899 Other long term (current) drug therapy; Z88.0 Allergy status to penicillin
CPT/HCPCS: 72100; 73502

== ENCOUNTER 2025-02-05 13:52 | Outpatient (CLI) | payer MEDICARE, BC ==
[~2025-02-05 13:52] MED LIST changes: +TRAM-626 PO
[2025-02-05 15:00] LABS: Free T3 2.85 pg/mL (2.3-4.2); Free T4 (Free Thyroxine) 0.99 ng/dL (0.89-1.76)
== END 2025-02-05 17:00 | disposition home or self-care (01) ==
LOC: LAB 13:52
PROVIDERS: ATTEND Internal Medicine
DX: E89.0 Postprocedural hypothyroidism (principal); E04.1 Nontoxic single thyroid nodule; E07.9 Disorder of thyroid, unspecified; E55.9 Vitamin D deficiency, unspecified; Z79.899 Other long term (current) drug therapy
CPT/HCPCS: 36415; 82306; 84439; 84443; 84481